=== PATIENT | female | born 1960 | race Caucasian/White ===

== ENCOUNTER → 2016-12-17 | Outpatient (CLI) | payer OTHER ==
[~2016-12-17] VITALS: Ht 167.6 cm; Wt 141.5 kg
[~2016-12-17] MED LIST: ASPIRIN325 PO; ATORVASTATIN CA40 MG PO; BETA CAROT10000 UNIT PO; BUSPIRONE; CARISOPRODOL 3350 MG PO; CINNAMON500 MG PO; CYMBALTA60 MG PO; DEPAKOTE ER500 MG PO; FENOFIBRATE200 MG PO; FOLBIC RF TABL1 EACH PO; HYDROCODON-ACE1 EAC5 PO; LANTUS SUBQ; LASIX 40 MG TAB40 M1; LEVOTHYROXIN0.025 MG PO; LUTEIN20 MG PO; LYRICA100 MG PO; MS CONTIN15 MG PO; MS CONTIN30 MG PO; MULTI VITAMIN1 EACH PO; NABUMETONE 750750 M1 PO; NORCO 10-325 T1 EACH PO; NORFLEX100 MG PO; NOVALOG INSULIN; NUVIGIL250 MG PO; PERCOCET 10-321 EACH PO; PERCOCET 5-3251 EACH PO; POTASSIUM20; TOPAMAX 25 MG T25 M1 PO; TRILEPTAL150 MG PO; TYLENOL EXTRA500 MG PO; VITAMIN D1000 UNI1 PO; VITAMIN D2000 UNIT PO; VITAMIN D3 COM1 EACH PO; XANAX 0.5 MG0.5 M1 PO
--- NOTE | ~2016-12-17 | HPC ---
[facility] [place] [address] PAIN MANAGEMENT CONSULTATION Name: VANIA RODRIGUEZ Room #: REG [facility].#: [id number] Admission: 12/17/16 Attend Phys: Dakota Hdz DO Discharge: Date of : 62 Report #: [id number] THIS REPORT FOR: //name// CC: SATISH Hdz The patient is a 56-year-old female well known to the pain clinic, typically treated for lumbar radiculopathy status post decompressive laminectomy, component of neuropathic pain, history of diabetes, medication management, complicated by morbid obesity. The patient returns to pain clinic today, last visit was 09/09/2016. Prior urine drug screen 11/21/2015, was positive for prescribed medications. The patient notes low back pain remains problematic. Since I saw her last, she has had multiple medical concerns. We had a prolonged visit from [id number] discussing interval history. Unfortunately, the patient tripped over her cat and did suffer fracture, right lower leg (fibula?). She is wearing a CAM type boot. 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 She had gotten better control of her blood sugars, hemoglobin A1c have been 6.5, but with the infection she has had poor control and last hemoglobin A1c was 7.1. She rates her pain as 6/10. Again, chronic low back pain, now with pain in the right leg secondary to the fracture and some neuropathic pain in left foot, chronic burning, aching, throbbing. We reviewed the fact that opiate medications are being used to provide analgesia adequate to support activities of daily living, not attempting to achieve a specific pain score on the 0-10 Visual Analog Scale. The current opiate medications are providing sufficient analgesia to allow the patient to participate in activities of daily living. The patient is not exhibiting any aberrant behavior suggestive of drug diversion. The patient is not having any adverse reactions to medications. The patient is not suffering from daytime somnolence or mental acuity changes. The patient is managing opiate-induced constipation with appropriate ldbq-pds-ubwvuwe agents and dietary considerations. The patient was counseled on concern for caution with operating a motor vehicle while using opiate medications. A physical exam was performed and the patient's functional status was evaluated. All patients with back pain were advised against the bed rest greater than 4 days and were advised to return to normal activities. Pain score assessment was noted and the treatment plan was reviewed with the patient. All current medications, both prescribed and OTC [place] [address] PAIN MANAGEMENT CONSULTATION Name: VANIA RODRIGUEZ Room #: REG [facility]#: [id number] Admission: 12/17/16 Attend Phys: Dakota Hdz DO Discharge: Date of : 62 Report #: [id number] electronic medical record. Tobacco screening was accomplished and smoking cessation was advised when indicated. BMI was noted and diet/exercise modification was recommended for all patients following outside normal parameters. I reviewed with the patient today their responsibilities to safeguard prescription medications, reviewed their responsibility to utilize medications only as prescribed by the physician. They are to seek and receive pain medications only from 1 physician group ( [facility]). They are to use 1 pharmacy and keep the clinic informed if they change pharmacies. Their responsibilities include making followup visits in a timely fashion and to avoid abrupt discontinuation of medication usage. Their responsibilities further include bringing their medications (bottles from the pharmacy with residual pills) to the visit for possible confirmation of pill counts and the patient understands it is their responsibility to submit to random drug screens to ensure both that the medications prescribed are present, and that no other controlled substances are present. All prescriptions provided today were generated electronically. PHYSICAL EXAMINATION: Shows a 56-year-old female, a gynaeoid type distribution, endomorphic build. BMI is 50.4 kilograms per meter squared. Blood pressure is 119/64, pulse 87, respirations are 14. She is alert and oriented to person, place, and time, judged to be a reasonable historian. She is in a wheelchair presently. Again, CAM type walker in the right lower extremity, does have a dressing on the left foot that wound care is changing biweekly. ASSESSMENT: Neuropathic pain requiring complex medication management, lumbar radiculopathy status post decompressive laminectomy, chronic pain syndrome, comorbidity includes insulin-dependent diabetes, morbid obesity requiring complex medication management. RECOMMENDATION: Long discussion with the patient today about therapeutic option, we have elected to continue MS Contin 30 mg at bedtime, Percocet 5/325 p.r.n. fairly infrequent use, 90 tablets typically lasts her about 90 days. Continue Cymbalta 60 mg 1 a day. The patient was discharged in good and stable condition. Again, we will look to get a urine drug screen at next visit, no aberrant behavior suggestive for drug diversion, simply complying with our opiate consent to treat contract a little greater than 1 year since the last UDS. <ELECTRONICALLY SIGNED> By: Dakota Hdz, 12/24/16 1606 [id number] Dakota Hdz DO /evon
[2016-12-17 12:58] VITALS: BP 119/64
== END | disposition home or self-care (01) ==
LOC: PAIN 06:51
DX: M54.16 Radiculopathy, lumbar region (principal); Z98.890 Other specified postprocedural states; E11.40 Type 2 diabetes mellitus with diabetic neuropathy, unspecified; E66.01 Morbid (severe) obesity due to excess calories; G89.4 Chronic pain syndrome

== ENCOUNTER → 2017-12-23 | Outpatient (CLI) | payer OTHER ==
[~2017-12-23] VITALS: Ht 167.6 cm; Wt 130.0 kg
[~2017-12-23] MED LIST changes: +BUSPIRONE HCL15 MG PO; +NORCO 5-325 TA1 EACH PO
--- NOTE | ~2017-12-23 | HPC ---
[facility] [place] [address] PAIN MANAGEMENT CONSULTATION Name: RODRIGUEZ,VANIA Jeffrey Room #: REG [facility].#: [id number] Admission: 12/23/17 Attend Phys: Dakota Hdz DO Discharge: Date of : 62 Report #: [id number] THIS REPORT FOR: //name// CC: SATISH TA Physician staff Dakota Hdz HISTORY OF PRESENT ILLNESS: The patient is a 57-year-old female, long treated for symptomatic lumbar radiculopathy, status post decompressive laminectomy. Primary pain, however, is bipedal neuropathy requiring complex medication management with multiple comorbidities including ati-uqsscbz-vadigrhqg diabetes. The patient was last seen in pain clinic back in May. At that time, she had been taking MS Contin 30 mg at bedtime and Percocet 5/325 fairly rarely. She was using Cymbalta as well. Random drug screen, 05/30/2017, was positive for prescribed medications. She returns to pain clinic today after a prolonged hiatus. She notes that she lost her insurance, weaned off medications. She had about a week's worth of opiate withdrawal, though was fairly nominal. She states current pain is bipedal, neuropathic, burning, aching with some axial back pain. Rates the pain as a 6 on a VAS. Pain is exacerbated with lifting, bending, pulling and walking. She remains morbidly obese. The weight has come down some, prior body mass index had been running around 50 kilograms per meter squared. She is down to 46.3 kilograms per meter squared. She describes the neuropathic pain as the primary component. She notes the pain is exacerbated with bending, lifting, pulling or walking. She gets some relief with medication changes and sleeping. Her significant other has been ill and she has a significant stress along with this. PHYSICAL EXAMINATION: GENERAL: Otherwise shows 5 feet 6 inches, 286 pounds female with a significantly endomorphic build. VITAL SIGNS: Blood pressure is 152/78, pulse is 84, respirations are 20, room air oxygen saturation is 97%. MUSCULOSKELETAL: She rises from chair with difficulty using the armrest. Gait is modestly ataxic, though lower extremity strength is generally preserved. Lumbar range of motion is limited. We had a prolonged discussion today about therapeutic options. She has weaned off opiate analgesics. We talked about the point that neuropathic pain is not well treated with opiate analgesics. At this point, we are simply trying to keep the patient's functional status as high as we can. [facility] [address] [place] [address] PAIN MANAGEMENT CONSULTATION Name: VANIA RODRIGUEZ Room #: REG [facility]#: [id number] Admission: 12/23/17 Attend Phys: Dakota Hdz DO Discharge: Date of : 62 Report #: [id number] After a long discussion, we elected to resume Trileptal 150 mg at bedtime, titrating up to b.i.d., I have taken the liberty of writing for 60 tablets with 5 refills. Reconciled the patient's medication list. Otherwise, she is continued on Cymbalta 60 mg b.i.d., Depakote for seizure disorder, fenofibrate, Xanax 0.5 mg for anxiety, Topamax, BuSpar and the aforementioned Trileptal. She had weaned off Trileptal as well incidentally, we elected to resume the Trileptal. After a long and thoughtful discussion, we did elect to start a low dose p.r.n. narcotic, hydrocodone 5/325, limit 75 tablets, to take 1 tablet q.4 hours as needed for pain on a nondaily basis, release in 6 weeks, a second prescription for 75 tablets. This should last the patient about 12 weeks. She is encouraged increasing activity with dietary discretion for weight reduction. Discharged in good and stable condition. <ELECTRONICALLY SIGNED> By: Dakota Hdz DO 12/26/17 [id number] Dakota Hdz DO /nt
[2017-12-23 14:09] VITALS: BP 152/78
== END ==
LOC: PAIN 12-05 07:36
DX: M54.16 Radiculopathy, lumbar region (principal); Z79.899 Other long term (current) drug therapy